=== PATIENT | male | born 1980 | race Caucasian/White ===

== ENCOUNTER 2016-12-28 18:23 | Emergency (ER) | payer OTHER ==
--- NOTE | 2016-12-28 19:04 | ED Physician Documentation ---
History of Present Illness - Stated complaint Stated Complaint: MUNOZ/HIGH BLOOD PRESSURE - Chief complaint Chief Complaint: General - History obtained from History obtained from: Patient - History of Present Illness Timing: How many weeks ago (several) Pain level max: 6 Pain level now: 5 Improved by: motrin Worsened by: nothing - Additonal information Additional information: Patient is a 36-year-old male who states that he has been under increasing stress lately at home and work. States that he is out of his lisinopril, 5 mg p.o. daily. He also states he has been having intermittent headaches. States that most of the time they are located behind the left eye. He does have occasional light sensitivity. No vomiting. No fevers. 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 Review of Systems Constitutional: denies: Fever, Chills Eyes: reports: Photophobia (mild). denies: Decreased vision Ears: denies: Ear pain Nose: denies: Rhinorrhea / runny nose, Congestion Throat: denies: Sore throat Cardiac: denies: Chest pain / pressure Respiratory: denies: Cough, Wheezing GI: denies: Abdominal Pain, Nausea, Vomiting, Diarrhea Skin: denies: Rash Musculoskeletal: denies: Neck pain, Back pain Neurologic: denies: Focal weakness, Numbness, Confused, Altered mental status, Head injury Psychiatric: denies: Depressed, Suicidal, Homicidal PD PAST MEDICAL HISTORY - Past Medical History Cardiovascular: Hypertension Respiratory: None Neuro: None Endocrine/Autoimmune: None GI: None : None HEENT: None Psych: None Musculoskeletal: None Derm: None - Past Surgical History Past Surgical History: Yes - Present Medications Home Medications: Ambulatory Orders Medication Instructions Recorded Confirmed Hydrocodone/Acetaminophen 1 - 2 each PO Q6H PRN #25 tablet 02/06/14 [Hydrocodon-Acetaminophen 5-325] Lidocaine HCl 5 ml TOP Q4H PRN #30 g 02/06/14 Lisinopril 02/06/14 02/06/14 Cyclobenzaprine [Flexeril] 10 mg PO TID PRN #20 tablet 08/20/16 HYDROcod/ACETAM 5/325 [[place] 5/325] 1 - 2 ea PO Q6H PRN #15 tablet 08/20/16 predniSONE [Deltasone] 20 mg PO [id number] #21 tab 08/20/16 Lisinopril 5 mg PO DAILY #14 tablet 12/28/16 - Allergies Allergies/Adverse Reactions: Allergies Allergy/AdvReac Type Severity Reaction Status Date / Time amoxicillin [Amoxicillin] Allergy Unknown Verified 02/06/14 14:02 - Social History Does the pt smoke?: No Smoking Status: Current every day smoker Does the pt drink ETOH?: Yes Does the pt have substance abuse?: No - Immunizations Immunizations are current?: Yes - POLST Patient has POLST: No PD ED PE NORMAL - Vitals Vital signs reviewed: Yes - General General: Alert and oriented X 3, No acute distress, Well developed/nourished - HEENT HEENT: PERRL, EOMI, Moist mucous membranes, Other (No tenderness to palpation over the temporal artery) - Neck Neck: Supple, no meningeal sign - Cardiac Cardiac: RRR, No murmur, Strong equal pulses - Respiratory Respiratory: No respiratory distress, Clear bilaterally - Abdomen Abdomen: Soft, Non tender, Non distended - Derm Derm: Warm and dry - Extremities Extremities: No edema - Neuro 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 This was done for him. He also had a headache which improved with Imitrex. He is very well-appearing, nontoxic. Afebrile. No evidence of endorgan damage. Blood pressure decreased on its own in the emergency department. No chest pain, no shortness of breath. No evidence of temporal arteritis or brain tumor. Normal neurological examination. Patient counseled regarding signs and symptoms for which I believe and urgent re-evaluation would be necessary. Patient with good understanding of and agreement to plan and is comfortable going home at this time This document was made in part using voice recognition software. While efforts are made to proofread this document, sound alike and grammatical errors may occur. Departure - Departure Disposition: 01 Home, Self Care Clinical Impression: Hypertension Qualifiers: Hypertension type: essential hypertension Qualified Code(s): I10 - Essential ( primary) hypertension Headache Qualifiers: Headache type: unspecified Headache chronicity pattern: acute headache Intractability: not intractable Qualified Code(s): R51 - Headache Condition: Good Instructions: ED HTN Established, ED Cephalgia Unspecified Follow-Up: Segundo Cantor MD [Primary Care Provider] - Within 1 week Prescriptions: Lisinopril 5 mg PO DAILY #14 tablet Comments: Return if you worsen. Follow up with your doctor for further care of your blood pressure. Discharge Date/Time: 12/28/16 19:27
[2016-12-28] MEDS ORDERED: SUMAtriptan 6 MG/0.5 ML VIAL SUBQ ONE (19:08)
[2016-12-28] MEDS: SUMAtriptan 6 MG/0.5 ML VIAL SUBQ STA (19:11)
[2016-12-28 19:27] VITALS: BP 149/94
== END 2016-12-28 19:27 | disposition home or self-care (01) ==
LOC: ED 18:23
DX: I10 Essential (primary) hypertension (principal); R51 Headache; Z76.0 Encounter for issue of repeat prescription; F17.200 Nicotine dependence, unspecified, uncomplicated
CPT/HCPCS: 96372; 99283; 99284

== ENCOUNTER 2017-06-11 08:00 | Outpatient (CLI) | payer OTHER ==
[2017-06-11 17:48] LABS: BASOPHILS # (AUTO) 0.1 10^3/uL (0.0-0.1); BASOPHILS % (AUTO) 0.8 %; EOSINOPHILS # (AUTO) 0.5 10^3/uL (0.0-0.7); EOSINOPHILS % (AUTO) 4.7 %; HCT - HEMATOCRIT 43.9 % (42.0-52.0); HGB - HEMOGLOBIN 14.7 g/dL (14.0-18.0); LYMPHOCYTES # (AUTO) 2.5 10^3/uL (1.5-3.5); LYMPHOCYTES % (AUTO) 25.2 %; MEAN CORPUSCULAR HGB CONC 33.5 g/dL (32.0-36.0); MEAN CORPUSCULAR VOLUME 92.6 fL (80.0-94.0); MEAN PLATELET VOLUME 9.6 fL (7.4-11.4); MONOCYTES # (AUTO) 0.7 10^3/uL (0.0-1.0); MONOCYTES % (AUTO) 6.7 %; NEUTROPHILS # (AUTO) 6.3 10^3/uL (1.5-6.6); NEUTROPHILS % (AUTO) 62.6 %; NUCLEATED RED BLOOD CELLS AUTO 0.1 /100WBC; RED BLOOD COUNT 4.74 10^6/uL (4.70-6.10); RED CELL DISTRIBUTION WIDTH 12.4 % (12.0-15.0)
[2017-06-12 12:17] LABS: ALBUMIN/GLOBULIN RATIO 1.4 (1.0-2.2); BILIRUBIN,TOTAL 0.3 mg/dL (0.2-1.0); BUN - BLOOD UREA NITROGEN 25 mg/dL (6-20); CARBON DIOXIDE - CO2 24 mmol/L (21-32); CHLORIDE 104 mmol/L (101-111); CREATININE 1.4 mg/dL (0.6-1.2); GFR - MDRD 57 (>89); GLUCOSE 84 mg/dL (70-100); SODIUM 137 mmol/L (135-145); TOTAL PROTEIN 6.8 g/dL (6.7-8.2)
== END 2017-06-11 08:01 ==
LOC: LAB.F 08:00
PROVIDERS: ATTEND Internal Medicine
DX: F32.1 Major depressive disorder, single episode, moderate (principal); F41.0 Panic disorder [episodic paroxysmal anxiety]
CPT/HCPCS: 36415; 80053; 84443; 85025

== ENCOUNTER 2018-02-05 13:41 | Emergency (ER) | payer OTHER ==
--- NOTE | 2018-02-05 14:35 | XRAY Report ---
Procedure Date: 02/05/2018 Accession Number: [id number] / [id number] Procedure: XR - Knee 4 View LT CPT Code: FULL RESULT: EXAM: LEFT KNEE RADIOGRAPHY EXAM DATE: 02/05/2018 02:24 PM. CLINICAL HISTORY: Trauma. COMPARISON: None. TECHNIQUE: 4 views. FINDINGS: Bones: No acute fractures or suspicious bone lesions. Joints: No effusion. No subluxations. Soft Tissues: Unremarkable. IMPRESSION: No acute radiographic abnormalities. [facility]
[2018-02-05 15:14] VITALS: BP 141/92
--- NOTE | 2018-02-05 15:40 | ED Physician Documentation ---
PD HPI LOWER EXT INJURY - Stated complaint Stated Complaint: KNEE PX - Chief complaint Chief Complaint: Ext Problem - History obtained from History obtained from: Patient - History of Present Illness PD HPI LOW EXT INJURY LOCATION: Left, Knee (He has had left knee pain and swelling for the last few days that was exacerbated at his job, he works at the [employer] and has to climb ladders and stuff a lot. There is no specific injury. He has never had this before and there is no fever.) Review of Systems Constitutional: denies: Fever, Chills GI: denies: Abdominal Pain, Nausea, Vomiting : denies: Dysuria, Frequency PD PAST MEDICAL HISTORY - Past Medical History Past Medical History: No Cardiovascular: Hypertension Respiratory: None Neuro: None Endocrine/Autoimmune: None GI: None : None HEENT: None Psych: None Musculoskeletal: None Derm: None Other Past Medical History: swollen and painful left knee. - Past Surgical History Past Surgical History: No - Present Medications Home Medications: Ambulatory Orders Medication Instructions Recorded Confirmed Lisinopril 5 mg PO DAILY #14 tablet 12/28/16 Meloxicam [Mobic] 7.5 mg PO BIDWM PRN #15 tablet 02/05/18 - Allergies Allergies/Adverse Reactions: Allergies Allergy/AdvReac Type Severity Reaction Status Date / Time amoxicillin [Amoxicillin] Allergy Unknown Verified 02/05/18 13:51 - Social History Does the pt smoke?: No Smoking Status: Current every day smoker Does the pt drink ETOH?: Yes Does the pt have substance abuse?: Yes Substance Use and Type: Marijuana - Immunizations Immunizations are current?: Yes - POLST Patient has POLST: No PD ED PE NORMAL - Vitals Vital signs reviewed: Yes - General General: Alert and oriented X 3, No acute distress - Extremities Extremities: Other (Left knee has a tiny effusion compared to the right, there is no warmth or redness, he has painless passive range of motion and ligamentous testing and grind testing is negative.) - Neuro 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, Normal speech Results - Vitals Vitals: Vital Signs - 24 hr 02/05/18 02/05/18 13:49 15:13 Temperature 36.3 C L 36.4 C L Heart Rate 104 H 106 H Respiratory 18 18 Rate Blood Pressure 131/104 H 141/92 H O2 Saturation 99 97 Oxygen O2 Source Room air - Rads (name of study) 4 views of the left knee Radiology: EMP read contemporaneously (Normal) PD MEDICAL DECISION MAKING - ED course ED course: He has a tiny effusion of the left knee, clinically there is no evidence of infection. This is probably small for inflammatory infusion from overuse and light duty for a few days and an anti-inflammatory were advised. - Sepsis Event Vital Signs: Vital Signs - 24 hr 02/05/18 02/05/18 13:49 15:13 Temperature 36.3 C L 36.4 C L Heart Rate 104 H 106 H Respiratory 18 18 Rate Blood Pressure 131/104 H 141/92 H O2 Saturation 99 97 Oxygen O2 Source Room air Departure - Departure Disposition: 01 Home, Self Care Clinical Impression: Effusion, left knee Condition: Good Record reviewed to determine appropriate education?: Yes Instructions: ED Effusion Knee Prescriptions: Meloxicam [Mobic] 7.5 mg PO BIDWM PRN #15 tablet PRN Reason: Pain Comments: RECHECK WITH YOUR DOCTOR IN 1 WEEK IF NOT BETTER Forms: Activity restrictions
== END 2018-02-05 15:55 | disposition home or self-care (01) ==
LOC: ED 13:41
DX: M25.462 Effusion, left knee (principal); I10 Essential (primary) hypertension; F17.200 Nicotine dependence, unspecified, uncomplicated
CPT/HCPCS: 99283

== ENCOUNTER 2018-04-24 07:17 | Outpatient (CLI) | payer OTHER ==
--- NOTE | 2018-04-24 09:01 | XRAY Report ---
Reason: LEFT SHOULDER PAIN- IMMOBILITY Procedure Date: 04/24/2018 Accession Number: [id number] / [id number] Procedure: XR - Shoulder 3 View LT CPT Code: FULL RESULT: EXAM: LEFT SHOULDER RADIOGRAPHY EXAM DATE: 04/24/2018 08:30 AM. CLINICAL HISTORY: Left shoulder pain. Immobility. COMPARISON: SHOULDER LT W/O 04/24/2018 7:27 AM. TECHNIQUE: 3 views. FINDINGS: Bones: Normal. No fracture or bone lesion. Joints: The glenohumeral and acromioclavicular joints are normal. Soft tissues: The visualized hemithorax is unremarkable. No soft tissue swelling. IMPRESSION: Normal shoulder radiography. [facility]
--- NOTE | 2018-04-24 13:14 | MRI Report ---
Reason: LEFT SHOULDER PAIN - IMMOBILITY Procedure Date: 04/24/2018 Accession Number: [id number] / [id number] Procedure: MRI - Shoulder LT W/O CPT Code: FULL RESULT: EXAM: LEFT SHOULDER MRI WITHOUT CONTRAST EXAM DATE: 04/24/2018 08:26 AM. CLINICAL HISTORY: Left shoulder pain - immobility. COMPARISON: None. TECHNIQUE: Multiplanar, multisequence T1-weighted and fluid-sensitive sequences of the shoulder without contrast. Other: None. FINDINGS: Acromioclavicular Region: The acromion is type II. The acromioclavicular joint is unremarkable. The coracoacromial and coracoclavicular ligaments are intact. Trace amount of bursal fluid is present. Glenohumeral Region: No subluxation. No effusion or loose bodies. The articular cartilage is unremarkable. The glenohumeral ligaments and joint capsule are unremarkable. Bone Marrow: No fracture, marrow edema or bone lesions. Labrum: No focal discrete labral tears are seen; however, there is an anterior superior paralabral cyst which is multilocular. Series 901 image 18. Series 1001 image 18. There also is some undermining of the biceps labral attachment, this may also be torn. Musculature/Rotator Cuff: There is a small amount of increased T2 signal in the infraspinatus. No partial or full-thickness fluid-filled gaps are identified. There is a small amount of edema and fatty atrophy in the teres minor portion of the rotator cuff musculature. Series 1501 image 22, series 14 and 1 image 23. Biceps Tendon: The long head of the biceps tendon and biceps som are intact. Other: The subcutaneous tissues are unremarkable. IMPRESSION: 1. Type II unipartite undersurface osseous acromion shape. Trace amount of bursal fluid is present. 2. Although no focal discrete labral tears are noted, there is a paralabral cyst seen anterosuperiorly and some undermining of the biceps labral attachment. If additional diagnostic confidence is needed MR arthrography would be helpful to help further provide evidence for labral tear. 3. Mild tendinitis/tendinopathy of the infraspinatus. No rotator cuff tear. 4. Long head of biceps appears unremarkable. [facility] MUSCULOSKELETAL RADIOLOGY SECTION
== END 2018-04-24 07:18 | disposition home or self-care (01) ==
LOC: DI 07:17
PROVIDERS: ATTEND Nurse Practitioner Family
DX: M25.512 Pain in left shoulder (principal); Z74.09 Other reduced mobility; S43.432A Superior glenoid labrum lesion of left shoulder, initial encounter

== ENCOUNTER 2018-06-13 10:48 | Emergency (ER) | payer OTHER ==
[2018-06-13 11:09] VITALS: BP 169/100
== END 2018-06-13 14:23 | disposition left against medical advice (07) ==
LOC: ED 10:48
DX: Z53.21 Procedure and treatment not carried out due to patient leaving prior to being seen by health care provider (principal)

== ENCOUNTER 2019-02-16 07:04 | Outpatient (CLI) | payer MEDICAID ==
[2019-02-16 10:28] LABS: BASOPHILS # (AUTO) 0.1 10^3/uL (0.0-0.1); BASOPHILS % (AUTO) 0.6 %; EOSINOPHILS # (AUTO) 0.5 10^3/uL (0.0-0.7); LYMPHOCYTES # (AUTO) 2.7 10^3/uL (1.5-3.5); LYMPHOCYTES % (AUTO) 24.7 %; MEAN CORPUSCULAR HEMOGLOBIN 29.9 pg (27.0-31.0); MEAN CORPUSCULAR HGB CONC 32.3 g/dL (32.0-36.0); MEAN CORPUSCULAR VOLUME 92.6 fL (80.0-94.0); MEAN PLATELET VOLUME 11.6 fL (7.4-11.4); MONOCYTES # (AUTO) 0.9 10^3/uL (0.0-1.0); NEUTROPHILS # (AUTO) 6.6 10^3/uL (1.5-6.6); NEUTROPHILS % (AUTO) 61.4 %; PLT - PLATELET COUNT 242 10^3/uL (130-450); RED BLOOD COUNT 5.02 10^6/uL (4.70-6.10); RED CELL DISTRIBUTION WIDTH 12.5 % (12.0-15.0); WHITE BLOOD COUNT 10.8 x10^3/uL (4.8-10.8)
[2019-02-16 10:34] LABS: ALBUMIN 4.1 g/dL (3.2-5.5); ALBUMIN/GLOBULIN RATIO 1.2 (1.0-2.2); BILIRUBIN,TOTAL 0.4 mg/dL (0.2-1.0); CALCIUM 9.5 mg/dL (8.5-10.3); CREATININE 1.6 mg/dL (0.6-1.2); TOTAL PROTEIN 7.4 g/dL (6.7-8.2)
== END 2019-02-16 07:05 | disposition home or self-care (01) ==
LOC: LAB.F 07:04
PROVIDERS: ATTEND Physician Assistant Medical
DX: I10 Essential (primary) hypertension (principal); N28.9 Disorder of kidney and ureter, unspecified
CPT/HCPCS: 36415; 80053; 85025

== ENCOUNTER 2019-03-24 07:07 | Outpatient (CLI) | payer MEDICAID ==
[2019-03-24 10:11] LABS: BILIRUBIN,URINE NEGATIVE (NEGATIVE); GLUCOSE, URINE (UA) NEGATIVE (NEGATIVE); KETONES,URINE (UA) NEGATIVE (NEGATIVE); LEUKOCYTE ESTERASE, URINE NEGATIVE (NEGATIVE); NITRITE,URINE NEGATIVE (NEGATIVE); OCCULT BLOOD,URINE NEGATIVE (NEGATIVE); PH,URINE 5.5 PH (5.0-7.5); PROTEIN,URINE NEGATIVE (NEGATIVE); UROBILINOGEN,URINE 0.2 (NORMAL) E.U./dL (NORMAL)
[2019-03-24 10:16] LABS: CREATININE,URINE 71.8 mg/dL; MICROALBUM/CREATININE RATIO,UR 105.8 ug/mg (<30.0); MICROALBUMIN,URINE 7.6 mg/dL (0-300.0)
[2019-03-24 10:20] LABS: BACTERIA,URINE Rare /HPF (None Seen); CLARITY,URINE CLEAR (CLEAR); RBC,URINE 0-5 /HPF (0-5); SQUAMOUS EPITHELIAL CELL,UR NONE SEEN (<= Few)
== END 2019-03-24 07:08 | disposition home or self-care (01) ==
LOC: LAB.S 07:07
PROVIDERS: ATTEND Physician Assistant Medical
DX: N28.9 Disorder of kidney and ureter, unspecified (principal)
CPT/HCPCS: 81001; 82043; 82570

== ENCOUNTER 2019-04-06 22:07 | Outpatient (CLI) | payer MEDICAID ==
--- NOTE | 2019-04-07 03:51 | Ultrasound Report ---
Reason: ADULT TYPE POLYCYSTIC KIDNEY DISEASE Procedure Date: 04/06/2019 Accession Number: [id number] / [id number] Procedure: US - Abdomen Complete CPT Code: FULL RESULT: EXAM: ABDOMEN ULTRASOUND EXAM DATE: 04/06/2019 11:37 PM CLINICAL HISTORY: Adult type polycystic kidney disease. COMPARISON: None. TECHNIQUE: Real-time scanning was performed with static images obtained. FINDINGS: Liver: The liver is normal in echotexture. Multiple hepatic small cysts are seen, measuring up to 1.4 cm in maximal diameter. Liver measures 19.6 cm in length. Main portal vein flow: Hepatopetal. Gallbladder: Normal. No stones, wall thickening, or sonographic Park's sign. Biliary System: Common bile duct measures 3.1 mm. No intrahepatic or extrahepatic ductal dilatation. Pancreas: Limited visualization. Kidneys: Right: Right kidney is enlarged measuring 18.8 cm in length. Numerous cystic lesions are noted. Dominant cyst is anterolaterally measuring 5.8 cm. Left: Left kidney is enlarged measuring 20.6 cm. Numerous cystic lesions noted. Possible 8 mm kidney stone. Spleen: 11.4 cm. Tiny splenic cyst. No suspicious lesion. Aorta and Inferior Vena Cava: Unremarkable. Other: None. IMPRESSION: 1. Severe enlarged kidneys bilaterally, with polycystic change, corresponding to the known clinical history of polycystic kidney disease. 2. Multiple hepatic cystic lesions measuring up to 14 mm. 3. No gallstones, cholecystitis, or biliary dilation. [facility]
== END 2019-04-06 22:08 | disposition home or self-care (01) ==
LOC: DI 22:07
PROVIDERS: ATTEND Internal Medicine Nephrology
DX: Q61.2 Polycystic kidney, adult type (principal); K76.9 Liver disease, unspecified
CPT/HCPCS: 76700

== ENCOUNTER 2020-09-12 07:24 | Outpatient (CLI) | payer OTHER ==
[2020-09-12 15:33] LABS: BASOPHILS # (AUTO) 0.1 10^3/uL (0.0-0.1); BASOPHILS % (AUTO) 0.7 %; EOSINOPHILS # (AUTO) 0.4 10^3/uL (0.0-0.7); EOSINOPHILS % (AUTO) 4.2 %; HGB - HEMOGLOBIN 16.7 g/dL (14.0-18.0); LYMPHOCYTES # (AUTO) 2.4 10^3/uL (1.5-3.5); LYMPHOCYTES % (AUTO) 24.8 %; MEAN CORPUSCULAR HGB CONC 33.1 g/dL (32.0-36.0); MEAN CORPUSCULAR VOLUME 90.8 fL (80.0-94.0); MEAN PLATELET VOLUME 11.6 fL (7.4-11.4); MONOCYTES # (AUTO) 0.7 10^3/uL (0.0-1.0); MONOCYTES % (AUTO) 7.1 %; NEUTROPHILS % (AUTO) 62.9 %; PLT - PLATELET COUNT 184 10^3/uL (130-450); RED BLOOD COUNT 5.56 10^6/uL (4.70-6.10); RED CELL DISTRIBUTION WIDTH 12.2 % (12.0-15.0); WHITE BLOOD COUNT 9.6 x10^3/uL (4.8-10.8)
[2020-09-12 16:03] LABS: ALBUMIN 4.2 g/dL (3.2-5.5); ALBUMIN/GLOBULIN RATIO 1.4 (1.0-2.2); ALKALINE PHOSPHATASE 57 IU/L (42-121); ALT ALANINE AMINOTRANSFERASE 19 IU/L (10-60); AST ASPARTATE AMINOTRANSFERASE 17 IU/L (10-42); BILIRUBIN,TOTAL 0.5 mg/dL (0.2-1.0); BUN - BLOOD UREA NITROGEN 37 mg/dL (6-20); CARBON DIOXIDE - CO2 25 mmol/L (21-32); CHLORIDE 103 mmol/L (101-111); CHOL/HDL RATIO 7.2 (<5.0); CHOLESTEROL 287 mg/dL; CREATININE 2.1 mg/dL (0.6-1.2); GLUCOSE 96 mg/dL (70-100); HDL CHOLESTEROL 40 mg/dL; LDL CHOLESTEROL,CALCULATED 207 mg/dL; LDL/HDL RATIO 5.2 (<3.6); SODIUM 140 mmol/L (135-145); TOTAL PROTEIN 7.1 g/dL (6.7-8.2); VLDL CHOLESTEROL 40 mg/dL
== END 2020-09-12 07:25 | disposition home or self-care (01) ==
LOC: LAB.S 07:24
PROVIDERS: ATTEND Registered Nurse
DX: Q61.3 Polycystic kidney, unspecified (principal); N28.9 Disorder of kidney and ureter, unspecified; I10 Essential (primary) hypertension; F17.200 Nicotine dependence, unspecified, uncomplicated
CPT/HCPCS: 36415; 80053; 80061; 83721; 84153; 84443; 85025

== ENCOUNTER 2020-09-26 07:00 | Outpatient (CLI) | payer OTHER ==
--- NOTE | 2020-09-26 10:50 | XRAY Report ---
PROCEDURE: Lumbar Spine 2 View INDICATIONS: STRAIN OF LOWER BACK TECHNIQUE: 3 views of the lumbar spine were acquired. COMPARISON: None. FINDINGS: Bones: 5 [id number] vertebrae are present. There is mild levoscoliosis centered at L3 level. No vertebral body compression fractures. No suspicious bony lesions. Soft tissues: Overlying bowel gas pattern is normal. No suspicious soft tissue calcifications. IMPRESSION: No compression fracture or spondylolisthesis. Very mild levoscoliosis centered at L3 lev el. Reviewed by: Jonatan Billingsley MD on 09/26/2020 9:48 AM [facility] Approved by: Jonatan Billingsley MD on 09/26/2020 9:48 AM [facility] Station ID: [id number]
== END 2020-09-26 23:59 | disposition home or self-care (01) ==
LOC: DI.S 07:00
PROVIDERS: ATTEND Nurse Practitioner
DX: S39.012A Strain of muscle, fascia and tendon of lower back, initial encounter (principal)

== ENCOUNTER 2020-10-12 09:21 | Outpatient (CLI) | payer OTHER ==
[2020-10-12 15:56] LABS: CALCIUM 9.4 mg/dL (8.5-10.3)
[2020-10-12 16:12] LABS: CREATININE,URINE 101.5 mg/dL; MICROALBUM/CREATININE RATIO,UR 36.5 ug/mg (<30.0); MICROALBUMIN,URINE 3.7 mg/dL (0-300.0)
== END 2020-10-12 09:22 | disposition home or self-care (01) ==
LOC: LAB.S 09:21
PROVIDERS: ATTEND Registered Nurse
DX: Q61.3 Polycystic kidney, unspecified (principal); N28.9 Disorder of kidney and ureter, unspecified; I10 Essential (primary) hypertension; F17.200 Nicotine dependence, unspecified, uncomplicated
CPT/HCPCS: 36415; 80048; 82043; 82570

== ENCOUNTER 2020-12-12 07:19 | Outpatient (CLI) | payer OTHER ==
[2020-12-12 14:12] LABS: HCT - HEMATOCRIT 43.6 % (42.0-52.0); HGB - HEMOGLOBIN 14.2 g/dL (14.0-18.0); MEAN CORPUSCULAR HEMOGLOBIN 30.5 pg (27.0-31.0); MEAN CORPUSCULAR HGB CONC 32.6 g/dL (32.0-36.0); MEAN CORPUSCULAR VOLUME 93.8 fL (80.0-94.0); MEAN PLATELET VOLUME 11.3 fL (7.4-11.4); RED BLOOD COUNT 4.65 10^6/uL (4.70-6.10); RED CELL DISTRIBUTION WIDTH 12.5 % (12.0-15.0); WHITE BLOOD COUNT 6.1 x10^3/uL (4.8-10.8)
[2020-12-12 14:32] LABS: ALBUMIN 4.2 g/dL (3.2-5.5); CALCIUM 9.6 mg/dL (8.5-10.3); CREATININE 2.2 mg/dL (0.6-1.2); PHOSPHORUS 3.5 mg/dL (2.5-4.6); POTASSIUM 4.1 mmol/L (3.5-5.0); URIC ACID 7.5 mg/dL (2.6-7.2)
[2020-12-12 14:34] LABS: CREATININE,URINE 118.8 mg/dL; MICROALBUM/CREATININE RATIO,UR 31.1 ug/mg (<30.0); MICROALBUMIN,URINE 3.7 mg/dL (0-300.0)
== END 2020-12-12 07:20 | disposition home or self-care (01) ==
LOC: LAB.S 07:19
PROVIDERS: ATTEND Internal Medicine Nephrology
DX: I12.9 Hypertensive chronic kidney disease with stage 1 through stage 4 chronic kidney disease, or unspecified chronic kidney disease (principal); N18.9 Chronic kidney disease, unspecified; Q61.3 Polycystic kidney, unspecified
CPT/HCPCS: 36415; 80069; 81599; 82043; 82570; 82610; 83970; 84550; 85027

== ENCOUNTER 2021-03-29 07:25 | Outpatient (CLI) | payer OTHER ==
[2021-03-29 14:54] LABS: HCT - HEMATOCRIT 44.4 % (42.0-52.0); HGB - HEMOGLOBIN 14.2 g/dL (14.0-18.0); MEAN CORPUSCULAR VOLUME 93.7 fL (80.0-94.0); MEAN PLATELET VOLUME 11.6 fL (7.4-11.4); RED BLOOD COUNT 4.74 10^6/uL (4.70-6.10); RED CELL DISTRIBUTION WIDTH 12.2 % (12.0-15.0); WHITE BLOOD COUNT 7.6 x10^3/uL (4.8-10.8)
[2021-03-29 15:13] LABS: ALBUMIN 4.1 g/dL (3.2-5.5); CALCIUM 9.3 mg/dL (8.5-10.3); CREATININE 1.9 mg/dL (0.6-1.2); PHOSPHORUS 3.9 mg/dL (2.5-4.6); POTASSIUM 4.4 mmol/L (3.5-5.0); URIC ACID 7.9 mg/dL (2.6-7.2)
[2021-03-29 15:33] LABS: CREATININE,URINE 74.5 mg/dL; MICROALBUM/CREATININE RATIO,UR 17.4 ug/mg (<30.0); MICROALBUMIN,URINE 1.3 mg/dL (0-300.0)
== END 2021-03-29 07:26 | disposition home or self-care (01) ==
LOC: LAB.S 07:25
PROVIDERS: ATTEND Internal Medicine Nephrology
DX: D75.1 Secondary polycythemia (principal); I12.9 Hypertensive chronic kidney disease with stage 1 through stage 4 chronic kidney disease, or unspecified chronic kidney disease; N18.31 Chronic kidney disease, stage 3a; Q61.3 Polycystic kidney, unspecified
CPT/HCPCS: 36415; 80069; 81599; 82043; 82570; 82610; 83970; 84550; 85027

== ENCOUNTER 2023-09-18 09:52 | Inpatient (IN) | payer OTHER ==
[2023-09-18] MEDS ORDERED: SODIUM CHLORIDE 0.9% 1,000 ML IV STA (10:39)
[2023-09-18 10:48] LABS: BASOPHILS # (AUTO) 0.1 10^3/uL (0.0-0.1); BASOPHILS % (AUTO) 0.6 %; EOSINOPHILS # (AUTO) 0.3 10^3/uL (0.0-0.7); EOSINOPHILS % (AUTO) 2.8 %; HCT - HEMATOCRIT 42.7 % (42.0-52.0); HGB - HEMOGLOBIN 14.1 g/dL (14.0-18.0); LYMPHOCYTES # (AUTO) 1.4 10^3/uL (1.5-3.5); LYMPHOCYTES % (AUTO) 15.7 %; MEAN CORPUSCULAR HEMOGLOBIN 30.1 pg (27.0-31.0); MEAN CORPUSCULAR VOLUME 91.2 fL (80.0-94.0); MEAN PLATELET VOLUME 10.4 fL (7.4-11.4); MONOCYTES # (AUTO) 0.6 10^3/uL (0.0-1.0); MONOCYTES % (AUTO) 6.4 %; NEUTROPHILS # (AUTO) 6.5 10^3/uL (1.5-6.6); NEUTROPHILS % (AUTO) 73.9 %; PLT - PLATELET COUNT 192 10^3/uL (130-450); RED BLOOD COUNT 4.68 10^6/uL (4.70-6.10); RED CELL DISTRIBUTION WIDTH 12.9 % (12.0-15.0); WHITE BLOOD COUNT 8.8 x10^3/uL (4.8-10.8)
[2023-09-18 11:25] LABS: ALBUMIN 4.2 g/dL (3.2-5.5); ALBUMIN/GLOBULIN RATIO 1.4 (1.0-2.2); BILIRUBIN,TOTAL 0.4 mg/dL (0.2-1.0); CALCIUM 8.7 mg/dL (8.5-10.3); CREATININE 3.6 mg/dL (0.6-1.3); POTASSIUM 3.9 mmol/L (3.5-4.5); TOTAL PROTEIN 7.1 g/dL (6.4-8.9); TROPONIN I HIGH SENSITIVITY 4.1 ng/L (2.3-19.7)
--- NOTE | 2023-09-18 11:28 | XRAY Report ---
PROCEDURE: Chest 1V INDICATIONS: weakness TECHNIQUE: One view of the chest was acquired. COMPARISON: None. FINDINGS: Surgical changes and devices: None. Lungs and pleura: No pleural effusions or pneumothorax. Lungs are clear. Mediastinum: Mediastinal contours appear normal. Heart size is normal. Bones and chest wall: No suspicious bony lesions. Overlying soft tissues appear unremarkable. IMPRESSION: No acute cardiopulmonary process. Reviewed by: Prince Siegel MD on 09/18/2023 11:27 AM [facility] Approved by: Prince Siegel MD on 09/18/2023 11:27 AM [facility] Station ID: [id number]
--- NOTE | 2023-09-18 12:16 | ED Physician Documentation ---
History of Present Illness - Stated complaint Stated Complaint: LETHARGIC,WEAKNESS,NAUSEA - Chief complaint Chief Complaint: Neuro - History obtained from History obtained from: Patient - Additonal information Additional information: Patient is a 43-year-old male with a history of hypertension and polycystic kidney disease presenting for evaluation of a near syncopal episode. States he has been off his medications for at least a year and has not seen a kidney specialist in a few years. He reports this morning That he stood up and started feeling lightheaded as if he was going to faint. He reports feeling foggy in the head and just generally unwell. Denies chest pain, shortness of air, headache. Review of Systems Constitutional: denies: Fever Cardiac: denies: Chest pain / pressure Respiratory: denies: Dyspnea GI: denies: Abdominal Pain Neurologic: denies: Syncope, Head injury PD PAST MEDICAL HISTORY - Past Medical History Past Medical History: Yes Cardiovascular: Hypertension Respiratory: None Neuro: None Endocrine/Autoimmune: None GI: None : None, Other HEENT: None Psych: None Musculoskeletal: None Derm: None Other Past Medical History: polycyctic kidney dx - Past Surgical History Past Surgical History: Yes - Present Medications Home Medications: Ambulatory Orders Medication Instructions Recorded Confirmed No Known Home Medications 09/18/23 09/18/23 - Allergies Allergies/Adverse Reactions: Allergies Allergy/AdvReac Type Severity Reaction Status Date / Time amoxicillin [Amoxicillin] Allergy Unknown Verified 09/18/23 10:13 - Social History Does the pt smoke?: No Smoking Status: Never smoker Does the pt drink ETOH?: Yes Does the pt have substance abuse?: Yes - Immunizations Immunizations are current?: Yes - POLST Patient has POLST: No PD ED PE NORMAL - General General: Alert and oriented X 3, No acute distress, Well developed/nourished - HEENT HEENT: Atraumatic, Moist mucous membranes, Pharynx benign - Neck Neck: Supple, no meningeal sign - Cardiac Cardiac: RRR, Strong equal pulses - Respiratory Respiratory: No respiratory distress, Clear bilaterally - Abdomen Abdomen: Soft, Non tender, Non distended - Derm Derm: Warm and dry - Neuro 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, 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, No motor deficit, No sensory deficit, Normal speech Eye Opening: Spontaneous Motor: Obeys Commands Verbal: Oriented GCS Score: 15 Results - Vitals Vitals: Vital Signs - 24 hr 09/18/23 09/18/23 09/18/23 10:09 10:13 10:43 Temperature 36.8 C 36.8 C 36.8 C Heart Rate 91 91 80 Respiratory 20 20 40 H Rate Blood Pressure 200/112 H 200/112 H 173/120 H O2 Saturation 99 99 95 09/18/23 09/18/23 09/18/23 11:13 11:30 12:00 Temperature 36.8 C Heart Rate 70 80 90 Respiratory 16 14 16 Rate Blood Pressure 166/112 H 160/100 H 162/112 H O2 Saturation 95 99 96 09/18/23 12:30 Temperature Heart Rate 68 Respiratory 17 Rate Blood Pressure 157/107 H O2 Saturation 96 Oxygen O2 Source Room air - EKG (time done) 1019 EKG releavant findings:: EKG personally interpreted by author of this note. Relevant findings are: Rate 86, normal sinus rhythm, no STEMI, QTc 453 - Labs Labs: Laboratory Tests 09/18/23 09/18/23 09/18/23 10:20 10:30 10:30 WBC 8.8 RBC 4.68 L Hgb 14.1 Hct 42.7 MCV 91.2 MCH 30.1 MCHC 33.0 RDW 12.9 Plt Count 192 MPV 10.4 Neut # (Auto) 6.5 Lymph # (Auto) 1.4 L [place] # (Auto) 0.6 Eos # (Auto) 0.3 Baso # (Auto) 0.1 Absolute Nucleated RBC 0.00 Nucleated RBC % 0.0 Sodium 138 Potassium 3.9 Chloride 103 Carbon Dioxide 23 Anion Gap 12.0 BUN 48 H Creatinine 3.6 H Estimated GFR (MDRD) 19 L Glucose 135 H POC Whole Bld Glucose 124 H Calcium 8.7 Total Bilirubin 0.4 AST 15 ALT 14 Alkaline Phosphatase 55 Troponin I High Sens 4.1 Total Protein 7.1 Albumin 4.2 Globulin 2.9 Albumin/Globulin Ratio 1.4 Lipase 45 PD Medical Decision Making - ED course Complexity details: reviewed results, re-evaluated patient, d/w patient ED course: Patient is a 43-year-old male presenting for evaluation of near syncope, feeling lightheaded. Noted to have significant slightly elevated blood pressure readings. Has been noncompliant with his medication for at least a year. No focal deficits. EKG was reviewed without signs of acute ischemia. CBC, chemistry and troponin were obtained and reviewed. Chest x-ray is negative For consolidation or effusion. Labs are significant for creatinine of 3.6. Prior labs from 2020 did demonstrate creatinine of around 2.0. His blood pressure has improved here without any intervention. I do not think he needs rapid lowering with IV medications as it has come down a considerable amount. However given his lack of PCP, symptoms today, blood pressure readings as well as his KAMILLA I do think he warrants further evaluation and treatment. I discussed with Dr. Hart. She requests a head CT which we did obtain and negative for intracranial hemorrhage. She also request that we hold off on starting any oral antihypertensives that she will choose the regiment. Patient to be admitted for further management. Departure - Departure Disposition: 66 [facility] DC/Xfer Clinical Impression: Hypertensive emergency, KAMILLA (acute kidney injury), Polycystic kidney disease Condition: Good Discharge Date/Time: 09/18/23 14:14
--- NOTE | 2023-09-18 13:24 | CT Report ---
PROCEDURE: Head WO INDICATIONS: hypertensive emergency TECHNIQUE: Noncontrast 4.5 mm thick angled axial sections acquired from the foramen magnum to the vertex. For r adiation dose reduction, the following was used: automated exposure control, adjustment of mA and/or kV according to patient size. COMPARISON: Correlation is made with 03/17/2021 FINDINGS: Image quality: Excellent. CSF spaces: Basal cisterns are patent. No extra-axial fluid collections. Ventricles are normal in size and shape. Brain: No midline shift. No intracranial masses or hemorrhage. Paredes-white matter interface is norm al. Skull and face: Calvarium and visualized facial bones are intact, without suspicious lesions. Sinuses: Moderate mucosal thickening is seen within the right maxillary sinus, with milder patchy muc osal thickening seen elsewhere within the paranasal sinuses. No significant abnormal fluid can be see n within the mastoid air cells. IMPRESSION: No acute intracranial pathology. Paranasal sinus disease is seen, which is worst within the right maxillary sinus. Reviewed by: Dontae Esquivel MD on 09/18/2023 12:22 PM [facility] Approved by: Dontae Esquivel MD on 09/18/2023 12:22 PM [facility] Station ID: [id number]
[2023-09-18] MEDS ORDERED: ACETAMINOPHEN 325 MG TABLET PO PRN (13:41)
[2023-09-18] MEDS ORDERED: ONDANSETRON 4 MG/2 ML VIAL IVP PRN (13:41)
[2023-09-18] MEDS ORDERED: SODIUM CHLORIDE FLUSH 0.9% 10 ML SYRINGE IVP PRN (13:41)
[2023-09-18] MEDS ORDERED: METOPROLOL TARTRATE 50 MG TABLET PO STA (14:12)
[2023-09-18] MEDS ORDERED: NICOTINE 14 MG PATCH TOP PRN (14:13)
--- NOTE | 2023-09-18 14:20 | HISTORY & PHYSICAL EXAMINATION ---
Chief Complaint - Chief Complaint Chief Complaint: "Foggy", severely elevated BP History of Present Illness - Admitted From Admitted From:: ED - History Obtained From History obtained from: ED provider and the patient - History of Present Illness HPI Comment/Other: This is a 43-year-old male with a remote Hx of drug abuse, stopped that in 2007, and has a history of polycystic kidney disease and hypertension. He used to be a patient with [facility] and followed by a [facility] in [place]. He has not been on meds for hypertension or had any follow-up for about 3 years, because he did not want to. Today after arrivibg at work, he felt lightheaded and "foggy" and had near syncope. He had his BP checked by medics at work and the systolic BP was 200 so a co-worker brought him tothe ER. He felt dizzy and "foggy" in the ER as well. He denied any chest pain, shortness of breath, fever, nausea vomiting or diarrhea. In the ER, his blood pressure was documented at 200/112. He had a normal neuro exam. His blood pressure came down slowly on its own without any medications, to 173/120 then 162/112. His labs show normal CBC and normal troponin. His BMP shows a creatinine of 3.6 (the last creatinine was 2.1 in 2020) and a normal sodium and potassium. In the ER he has been urinating after starting on IV fluids. And he did not describe any oliguria or anuria. Head CT was done because of the complaints of dizziness and showed no acute findings. The ED provider spoke to me about this patient who will be admitted to the Hospitalist service to manage severe hypertension and acute on chronic kidney disease with Hx of polycystic kidneys. History - Past Medical History Cardiovascular: reports: Hypertension Respiratory: reports: None Neuro: reports: None Endocrine/Autoimmune: reports: None GI: reports: None : reports: Other (Polycystic kidney disease. Previously followed by a [facility]) HEENT: reports: None Psych: reports: None Musculoskeletal: reports: None Derm: reports: None MRSA Hx?: No Other Past Medical History: polycyctic kidney dx - Family & Social History Family History: Mother: Alive and Well (Mother has polycystic kidn dis & was on dialysis in past) Family History Comment/Other: His mother and a daughter have polycystic kidney disease. Mother was on hemodialysis for 4 years in her past. Living arrangement: At home Living Situation: With family Social History Notes: There is a remote history of many different illegal drug uses, he stopped that in 2007. Now he smokes cigarettes, uses marijuana occasionally and drinks 2 beers a day. 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 He is 4 times from 4 wives. He has 4 children, each have different moms. He lives with his own mother and a 16 y/o daughter. - Substance History Use: Uses substance without health or social issues: Tobacco, Alcohol, Cannabis - POLST Patient has POLST: No Meds/Allgy - Home Medications Home Medications: Ambulatory Orders Medication Instructions Recorded Confirmed No Known Home Medications 09/18/23 09/18/23 - Allergies Allergies/Adverse Reactions: Allergies Allergy/AdvReac Type Severity Reaction Status Date / Time amoxicillin [Amoxicillin] Allergy Unknown Verified 09/18/23 10:13 Review of Systems - Cardiovascular Cariovascular: reports: Lightheadedness - Neurological Neurological: reports: Other ("fogginess", nearly fainted today) - All Other Systems All Other Systems: reports: Reviewed and negative Exam - Vital Signs Reviewed Vital Signs: Yes Vital Signs: Vital Signs x48h Temp Pulse Resp BP Pulse Ox 09/18/23 13:41 70 18 156/93 H 100 09/18/23 12:30 68 17 157/107 H 96 09/18/23 12:00 36.8 C 90 16 162/112 H 96 09/18/23 11:30 80 14 160/100 H 99 09/18/23 11:13 70 16 166/112 H 95 09/18/23 10:43 36.8 C 80 40 H 173/120 H 95 09/18/23 10:13 36.8 C 91 20 200/112 H 99 09/18/23 10:09 36.8 C 91 20 200/112 H 99 - Physical Exam General Appearance: positive: No acute distress, Alert Eyes Bilateral: positive: Normal inspection, EOMI, No lid inflammation ENT: positive: ENT inspection nml, No signs of dehydration Neck: positive: Nml inspection, No JVD Respiratory: positive: No respiratory distress, Breath sounds nml Cardiovascular: positive: Regular rate & rhythm, No murmur Abdomen: positive: Non-tender, No organomegaly, Nml bowel sounds, Other (No bruits) Skin: positive: Warm, Other (Very tattooed extensively) Extremities: positive: Non-tender, No pedal edema Neurologic/Psychiatric: positive: Oriented x3, CN's nml (2-12), Motor nml Conclusion/Plan - Problem List (1) Hypertensive emergency Conclusion/Plan: Patient presented with severe hypertension, BP 200/112, concomitant with KAMILLA. According to his report he has not taken his BP meds for over a year. Plan: Begin BP control using po Amlodipine and po beta-blockers. Titrate the doses up slowly. Will also order IV hydralazine q6h as needed for systolic BP 180 or above, or for diastolic BP 110 or above Obtain EKG to assess for LVH and obtain Echo to assess for structural heart disease. If he has IHSS by echo it would explain his episode of near syncope. Obtain renal ultrasound to evaluate for renal artery stenosis (2) Acute on chronic kidney failure Conclusion/Plan: Causes of the worsening creatinine could be multifactorial: Volume depletion, progression of his underlying polycystic disease, worsening vascular disease with a decrease of perfusion to the kidneys, medication toxicity, or other. Plan: Start empiric iv hydration at a low to moderate rate Avoid nephrotoxins Follow his BMP daily while he (3) Polycystic kidney disease Conclusion/Plan: Patient describes having known polycystic kidney disease and previously was followed by a [facility] [employer] [facility]. Unknown why he has stopped medical management and doctor visits. Plan: Any old records would be helpful. He will need to reestablish seeing a PCP and a [facility] [employer] [facility]r going forward (4) Hyperlipidemia Conclusion/Plan: I reviewed his entire EMR here and he had a lipid panel done in 2020 that showed total cholesterol 287, LDL 207, triglycerides 198, HDL 40. Plan: Will repeat his fasting lipid panel here and treat per guidelines (5) Non compliance w medication regimen Conclusion/Plan: He has not seen a doctor is years and takes no meds, despite having HTN and a serious chronic disease (Polycystic kidneys). Plan: Compliance will be stressed - Lab Results Fish Bones: 09/18/23 10:30 09/19/23 05:27 - Diagnostic Imaging Results Diagnostic Imaging Results: positive: Final report reviewed - EKG Results EKG Interpreted Independently: Yes EKG Comparison: Old EKG unavailable EKG Findings: Normal sinus rhythm, rate 64, left atrial enlargement, early R/S transition consistent with cor pulmonale, borderline LVH voltage. No old EKG available for comparison. - Other Other Results/Comments: Attestation: The patient is expected to be hospitalized for greater than 2 mi dnights and is expected to be discharged or transferred to another facility within 96 hours: Yes.
[2023-09-18] MEDS: DEXTROSE 5%-0.45% NACL 1,000 ML IV SCH (14:30)
--- NOTE | 2023-09-18 14:49 | PHARMACY PROGRESS NOTE ---
- Best Possible Medication History Admit Date and Time: 09/18/23 1341 Processed by: Pharmacy Medication History completed: Yes Patient Interview: Completed Secondary Source(s): Physician records, Pharmacy records, Insurance records As the person ultimately responsible for medication therapy, providers are able to order a medication from an existing home medication list in [facility] via the "Reconcile Routine" prior to Confirmation of that medication by phlebotomy support tech. Such practice is discouraged except when the physician, in their clinical judgment, deems that a medical need exists for a medication without regard to previous use.
[2023-09-18] MEDS ORDERED: hydrALAZINE INJ 20 MG/ML VIAL IVP PRN (17:20)
[2023-09-18] MEDS: SODIUM CHLORIDE FLUSH 0.9% 10 ML SYRINGE IVP SCH (18:32)
[2023-09-18] MEDS: METOPROLOL TARTRATE 25 MG TABLET PO SCH (20:42)
[2023-09-19] MEDS: SODIUM CHLORIDE FLUSH 0.9% 10 ML SYRINGE IVP SCH ×4 (00:10→23:56)
[2023-09-19 06:19] LABS: CALCIUM 8.8 mg/dL (8.5-10.3); CREATININE 3.3 mg/dL (0.6-1.3); MAGNESIUM 1.8 mg/dL (1.7-2.3); PHOSPHORUS 3.4 mg/dL (2.5-5.0); POTASSIUM 4.2 mmol/L (3.5-4.5)
[2023-09-19 06:37] LABS: CHOL/HDL RATIO 5.9 (<5.0); CHOLESTEROL 270 mg/dL; HDL CHOLESTEROL 46 mg/dL; LDL CHOLESTEROL,CALCULATED 182 mg/dL; TRIGLYCERIDES 211 mg/dL (48-352); VLDL CHOLESTEROL 42 mg/dL
[2023-09-19] MEDS: DEXTROSE 5%-0.45% NACL 1,000 ML IV SCH (06:52)
[2023-09-19] MEDS: METOPROLOL TARTRATE 25 MG TABLET PO SCH (08:27)
[2023-09-19] MEDS ORDERED: amLODIPine 5 MG TABLET PO SCH (09:00)
--- NOTE | 2023-09-19 09:42 | Ultrasound Report ---
PROCEDURE: Arterial Visceral Complete INDICATIONS: Severe HTN, Eval for renal artery stenosis TECHNIQUE: Real time scanning was performed of both kidneys, followed by Color and pulsed Doppler in terrogation of the renal vessels. COMPARISON: None FINDINGS: Aortic peak systolic velocity: 81 cm/s. Right side: Paredes-scale imaging: Polycystic kidneys. Proximal renal artery peak systolic velocity: Not visualized cm/s. Mid renal artery peak systolic velocity: Not visualized cm/s. Distal renal artery peak systolic velocity: Not visualized cm/s. Renal vein: Not visualized Peak renal/aortic ratio (RAR): Not visualized. Left side: Paredes-scale imaging: Polycystic kidneys. Proximal renal artery peak systolic velocity: Not visualized cm/s. Mid-renal artery peak systolic velocity: Not visualized cm/s. Distal renal artery peak systolic velocity: Not visualized cm/s. Renal vein: Not visualized Peak renal/aortic ratio (RAR): Not visualized. IMPRESSION: Renal vessels not visualized. Consider abdominal CTA to evaluate for atherosclerotic disease. Polycystic kidneys. Reviewed by: Josh Castro MD on 09/19/2023 9:41 AM PST Approved by: Josh Castro MD on 09/19/2023 9:41 AM PST Station ID: [id number]
--- NOTE | 2023-09-19 11:15 | PROVIDER PROGRESS NOTE ---
Assessment/Plan - Problem List (1) Hypertensive emergency Assessment/Plan: Patient presented with severe hypertension, BP 200/112, concomitant with KAMILLA, thus I made him an Inpt. According to his report he has not taken his BP meds for probably 3 years and had not seen a doctor in 3 years. I started him on Metoprolol and Amlodipine and ordered prn iv Hydralazine. Today BP is 150's-170's systolic. Echo to assess for structural heart disease was essentially normal. Renal ultrasound to evaluate for renal artery stenosis could n ot visualize the renal artery due to multiple renal cysts. I updated pt who said he has had MRI of kidneys in past. He is no longer "foggy", and all his orthostatic VS did not reveal orthostasis. Plan: Cont low salt diet and I educated pt on this I will titrate up the Amlodipine dose and also uptitrate and change Metoprolol Toartrate to Succinate No CTA or MRI planned here, due to persistently very elevated creat. He will need that W/U repeated with a Tube Puller Will stop orthostatic checks (2) Acute on chronic kidney failure Conclusion/Plan: Causes of the worsening creatinine could be multifactorial: Volume depletion, progression of his underlying polycystic disease, worsening vascular disease with a decrease of perfusion to the kidneys, medication toxicity, or other. I started him on iv fluids and today creat has improved to 3.3 (all labs were reviewed) Plan: Cont iv hydration at a low to moderate rate Avoid nephrotoxins Follow his BMP daily (3) Polycystic kidney disease Conclusion/Plan: Patient describes having known polycystic kidney disease and previously was followed by a T[facility]. Unknown why he has stopped medical management and doctor visits. There is a (+) FH: Mother and a daughter have it too. Plan: He will need to reestablish seeing a PCP and a Tube Puller going forward (4) Hyperlipidemia Conclusion/Plan: In 2020total cholesterol 287, LDL 207, triglycerides 198, HDL 40. Today fasting lipid panel showed an LDL of 187 Plan: Start Atorvastatin 40 mg qpm A low fat diet will be ordered (5) Non compliance w medication regimen Conclusion/Plan: He has not seen a doctor is years and takes no meds, despite having HTN and a serious chronic disease (Polycystic kidneys). Plan: Compliance was stressed - Current Meds Current Meds: Current Medications Generic Name Dose Route Start Last Admin Trade Name Freq PRN Reason Stop Dose Admin Dextrose/Sodium Chloride 1,000 mls @ 60 mls/hr 09/18/23 14:00 09/19/23 06:52 D5.45ns IV 09/19/23 23:19 60 mls/hr .[id number] PINA Administration Sodium Chloride 10 ml 09/18/23 17:00 09/19/23 08:28 Sodium Chloride Flush 0.9% 10 Ml Syringe IVP Not Given 0100,0900,1700 PINA - Lab Result Fish Bone Diagrams: 09/18/23 10:30 09/19/23 05:27 - Additional Planning My Orders: My Active Orders 09/18/23 13:41 Telemetry- [RC] Q4HR Vital Signs [RC] Q4HR Acetaminophen [Tylenol] 650 mg PO Q4HR PRN Ondansetron Inj [Zofran Inj] 4 mg IVP Q6HR PRN Sodium Chloride Flush 0.9% [Normal Saline Flush 0.9%] 10 ml IVP PRN PRN 09/18/23 13:45 Activity Orders [RC] Q2HR IO [RC] IOSHIFT Incentive Spirometry - RT [RC] TID Initiate Bowel Care Protocol [RC] .protocol Initiate Line Care Protocol [RC] QSHIFT Initiate Personal Care Protoco [RC] .protocol Oxygen Therapy [RC] .PRN Code Status [OTHERS] Routine Condition of Patient [OTHERS] Routine DVT Prophylaxis [OTHERS] Routine 09/18/23 13:47 Daily Weight [RC] 0600 IV Insert [RC] .ONCE SCDs [RC] QSHIFT 09/18/23 14:00 Dextrose 5%-0.45% NaCl [D5.45ns] 1,000 ml IV 60 mls/hr 09/18/23 14:13 Nicotine 14 mg Patch [Nicoderm] 1 patch TOP DAILY PRN 09/18/23 17:00 Sodium Chloride Flush 0.9% [Normal Saline Flush 0.9%] 10 ml IVP 0100,0900,1700 09/18/23 17:20 hydrALAZINE INJ [Apresoline Inj] 10 mg IVP Q6H PRN 09/19/23 Breakfast Low Sodium Diet [DIET] 09/19/23 10:15 VITAMIN D 25-HYDROXY [REFLAB] Routine 09/19/23 21:00 Atorvastatin [Lipitor] 40 mg PO QPM Metoprolol Succinate [Toprol Xl] 25 mg PO BID 09/20/23 05:00 BMP - BASIC METABOLIC PANEL [CHEM] DAILYLAB 09/20/23 09:00 amLODIPine [Norvasc] 10 mg PO DAILY 09/21/23 05:00 BMP - BASIC METABOLIC PANEL [CHEM] DAILYLAB Subjective - Subjective Patient Reports: Feeling Better (No further "fogginess" since last night.) Nursing Reports: Other (BP gets very hypertensive w/ standing and walking) Objective Vital Signs: Vital Signs - 24 hr 09/18/23 09/18/23 09/18/23 11:30 12:00 12:30 Temperature 36.8 C Heart Rate 80 90 68 Heart Rate [ Brachial] Heart Rate [ Monitoring electrodes] Respiratory 14 16 17 Rate Blood Pressure 160/100 H 162/112 H 157/107 H Blood Pressure [Right Brachial artery] O2 Saturation 99 96 96 09/18/23 09/18/23 09/18/23 13:41 14:22 14:25 Temperature 36.8 C Heart Rate 70 Heart Rate [ Brachial] Heart Rate [ 78 Monitoring electrodes] Respiratory 18 19 Rate Blood Pressure 156/93 H 174/114 H Blood Pressure 176/114 H [Right Brachial artery] O2 Saturation 100 98 09/18/23 09/18/23 09/18/23 16:30 16:43 17:39 Temperature 36.7 C Heart Rate Heart Rate [ 61 59 L Brachial] Heart Rate [ 55 L Monitoring electrodes] Respiratory 20 Rate Blood Pressure Blood Pressure 168/110 H 183/124 H 156/104 H [Right Brachial artery] O2 Saturation 98 09/18/23 09/18/23 09/19/23 20:42 20:51 01:00 Temperature 36.8 C 37.0 C Heart Rate Heart Rate [ 63 58 L Brachial] Heart Rate [ Monitoring electrodes] Respiratory 18 16 Rate Blood Pressure 143/100 H Blood Pressure 143/100 H 159/107 H [Right Brachial artery] O2 Saturation 97 95 09/19/23 09/19/23 09/19/23 05:00 08:02 08:27 Temperature 36.8 C 36.8 C Heart Rate Heart Rate [ 68 60 Brachial] Heart Rate [ Monitoring electrodes] Respiratory 16 20 Rate Blood Pressure 147/106 H Blood Pressure 123/105 H 147/106 H [Right Brachial artery] O2 Saturation 97 98 Oxygen O2 Source Room air I&O (Last 24 Hrs): Intake and Output Totals x24h 09/17/23 09/18/23 09/19/23 23:59 23:59 23:59 Intake Total 1846 476 Balance 1846 476 General: Alert, Oriented x3, No acute distress HEENT: EOMI, Mucous membr. moist/pink Neck: Supple, No JVD Neuro: Alert, Non Focal Cardiovascular: Regular rate, No murmurs Respiratory: No respiratory distress, Breath sounds nml Abdomen: Soft, No tenderness Extremities: No clubbing, No edema Skin: No significant lesion (MAny tattoos) - Results Results: Laboratory Results WBC 8.8 x10^3/uL (4.8-10.8) 09/18/23 10:30 RBC 4.68 10^6/uL (4.70-6.10) L 09/18/23 10:30 Hgb 14.1 g/dL (14.0-18.0) 09/18/23 10:30 Hct 42.7 % (42.0-52.0) 09/18/23 10:30 MCV 91.2 fL (80.0-94.0) 09/18/23 10:30 MCH 30.1 pg (27.0-31.0) 09/18/23 10:30 MCHC 33.0 g/dL (32.0-36.0) 09/18/23 10:30 RDW 12.9 % (12.0-15.0) 09/18/23 10:30 Plt Count 192 10^3/uL (130-450) 09/18/23 10:30 MPV 10.4 fL (7.4-11.4) 09/18/23 10:30 Neut # (Auto) 6.5 10^3/uL (1.5-6.6) 09/18/23 10:30 Lymph # (Auto) 1.4 10^3/uL (1.5-3.5) L 09/18/23 10:30 [place] # (Auto) 0.6 10^3/uL (0.0-1.0) 09/18/23 10:30 Eos # (Auto) 0.3 10^3/uL (0.0-0.7) 09/18/23 10:30 Baso # (Auto) 0.1 10^3/uL (0.0-0.1) 09/18/23 10:30 Absolute Nucleated RBC 0.00 x10^3/uL 09/18/23 10:30 Nucleated RBC % 0.0 /100WBC 09/18/23 10:30 Sodium 138 mmol/L (135-145) 09/19/23 05:27 Potassium 4.2 mmol/L (3.5-4.5) 09/19/23 05:27 Chloride 109 mmol/L (101-111) 09/19/23 05:27 Carbon Dioxide 22 mmol/L (21-32) 09/19/23 05:27 Anion Gap 7.0 (6-13) 09/19/23 05:27 BUN 42 mg/dL (6-20) H 09/19/23 05:27 Creatinine 3.3 mg/dL (0.6-1.3) H 09/19/23 05:27 Estimated GFR (MDRD) 20 (>89) L 09/19/23 05:27 Glucose 109 mg/dL (74-104) H 09/19/23 05:27 POC Whole Bld Glucose 124 mg/dL (70 - 100) H 09/18/23 10:20 Calcium 8.8 mg/dL (8.5-10.3) 09/19/23 05:27 Phosphorus 3.4 mg/dL (2.5-5.0) 09/19/23 05:27 Magnesium 1.8 mg/dL (1.7-2.3) 09/19/23 05:27 Total Bilirubin 0.4 mg/dL (0.2-1.0) 09/18/23 10:30 AST 15 IU/L (10-42) 09/18/23 10:30 ALT 14 IU/L (10-60) 09/18/23 10:30 Alkaline Phosphatase 55 IU/L (42-121) 09/18/23 10:30 Troponin I High Sens 4.1 ng/L (2.3-19.7) 09/18/23 10:30 Total Protein 7.1 g/dL (6.4-8.9) 09/18/23 10:30 Albumin 4.2 g/dL (3.2-5.5) 09/18/23 10:30 Globulin 2.9 g/dL (2.1-4.2) 09/18/23 10:30 Albumin/Globulin Ratio 1.4 (1.0-2.2) 09/18/23 10:30 Triglycerides 211 mg/dL (48-352) 09/19/23 05:27 Cholesterol 270 mg/dL (-200) H 09/19/23 05:27 LDL Cholesterol, Calc 182 mg/dL (-129) H 09/19/23 05:27 VLDL Cholesterol 42 mg/dL 09/19/23 05:27 HDL Cholesterol 46 mg/dL (60-) L 09/19/23 05:27 LDL/HDL Ratio 4.0 (<3.6) 09/19/23 05: Cholesterol/HDL Ratio 5.9 (<5.0) 09/19/23 05:27 Lipase 45 U/L (11-82) 09/18/23 10:30
[2023-09-19] MEDS ORDERED: METOPROLOL SUCCINATE 25 MG TABLET PO SCH (21:00)
[2023-09-19] MEDS ORDERED: ATORVASTATIN 40 MG TABLET PO SCH (21:00)
[2023-09-20 05:56] LABS: CALCIUM 9.1 mg/dL (8.5-10.3); CREATININE 3.4 mg/dL (0.6-1.3); POTASSIUM 4.1 mmol/L (3.5-4.5)
--- NOTE | 2023-09-20 07:21 | Discharge Plan ---
Discharge Plan Problem Reviewed?: Yes Disposition: Home, Self Care Condition: Fair Prescriptions: Atorvastatin [Lipitor] 40 mg PO QPM #30 tab amLODIPine [Norvasc] 10 mg PO DAILY #30 tab Metoprolol Succinate [Toprol Xl] 37.5 mg PO BID #90 tab Diet: Low Sodium Activity Restrictions: Activity as Tolerated Shower Restrictions: No Driving Restrictions: No Instruction Topics: Kidney Failure Self Care, Kidney Disease Eat Less Sodium, Kidney Disease Chronic Dc Health Concerns: You were hospitalized to evaluate and manage your lightheadedness which appears to have been caused by severely elevated blood pressure. You have been noncompliant for 3 years with taking your blood pressure medicines. You are put on blood pressure medicines while you were here. Due to your polycystic kidney disease and uncontrolled hypertension, your kidney function has worsened. You needed IV fluids which improved the kidney function only slightly. Your cardiac Echocardiogram showed you have a structurally stable heart, but a dilated ascending aorta, which is also likely from having years of uncontrolled hypertension. This needs follow-up with Echos done yearly as an outpatient, since intervention would be indicated if it reaches 5 cm. You are being discharged home today with new prescriptions for blood pressure control and cholesterol control. The new prescriptions were electronically sent to your [facility] pharmacy in [place]. We also found that you have a low vitamin D level, so please start taking an (over the counter brand) vitamin D supplement daily. Please remember to eat a low-salt and low cholesterol diet. You must establish with a Primary Care Provider and you need to start seeing a Gas Systems Worker again. The imaging we did to look at your kidney blood vessels was incomplete, this needs to be redone, probably by your new Gas Systems Worker. Plan of Treatment: As above. Care Goals: Improvement in symptoms and stabilization are the goals. Assessment: The patient understands and is agreeable with the plan. Additional Instructions or Follow Up instructions: If you have new or worsening symptoms, call your Primary Care Provider or your Gas Systems Worker for advice, or come to a Walk-In Clinic or the ER. No Smoking: If you smoke, Please STOP! Call for help.
--- NOTE | 2023-09-20 07:25 | DISCHARGE SUMMARY ---
Discharge Summary Admit Date: 09/18/23 Discharge Date: 09/20/23 Discharging Provider: Dr Digna Hart Primary Care Provider: None Code Status: Attempt Resuscitation Condition at Discharge: Fair Discharge Disposition: 01 Home, Self Care - HPI History of Present Illness: This is a 43-year-old male with a remote Hx of drug abuse, stopped that in 2007, and has a history of polycystic kidney disease and hypertension. He used to be a patient with [facility] and followed by a Minister in [place]. He has not been on meds for hypertension or had any follow-up for about 3 years, because he did not want to. Today after arrivibg at work, he felt lightheaded and "foggy" and had near syncope. He had his BP checked by medics at work and the systolic BP was 200 so a co-worker brought him tothe ER. He felt dizzy and "foggy" in the ER as well. He denied any chest pain, shortness of breath, fever, nausea vomiting or diarrhea. In the ER, his blood pressure was documented at 200/112. He had a normal neuro exam. His blood pressure came down slowly on its own without any medications, to 173/120 then 162/112. His labs show normal CBC and normal tropo sina. His BMP shows a creatinine of 3.6 (the last creatinine was 2.1 in 2020) and a normal sodium and potassium. In the ER he has been urinating after starting on IV fluids. And he did not describe any oliguria or anuria. Head CT was done because of the complaints of dizziness and showed no acute findings. The ED provider spoke to me about this patient who will be admitted to the Hospitalist service to manage severe hypertension and acute on chronic kidney disease with Hx of polycystic kidneys. - HOSPITAL COURSE Hospital Course: (1) Hypertensive emergency Patient was admitted due to severe hypertension, BP 200/112, concomitant with KAMILLA. He admitted he has not taken his BP meds for probably 3 years and has not seen a doctor in 3 years. He was started on Metoprolol and Amlodipine and the doses were up-titrated and he was discharged on these new meds. With improved BP control, his "fogginess" resolved. He had an Echo to assess for structural heart disease, which was essentially normal except for the ascending aorta (see #5). He had a Renal ultrasound to evaluate for renal artery stenosis, but this test could not visualize the renal arteries due to multiple renal cysts. He will need work-up for HUY done as an outpatient, probably with Nephrology. (2) Acute on chronic kidney failure Causes of his worsening creatinine could be multifactorial: Volume depletion, progression of his underlying polycystic disease, worsening vascular disease with a decrease of perfusion to the kidneys, or medication side effect, for example. He was put on iv fluids. His creat went from 3.6>> 3.3>> 3.4 on day of discharge. He needs outpatient Nephrology management. (3) Polycystic kidney disease Patient describes having known polycystic kidney disease and previously was followed by a Minister. Unknown why he has stopped medical management and doctor visits. There is a (+) FH: Mother and a daughter have it too. He will need to reestablish seeing a PCP and a Minister going forward. (4) Hyperlipidemia In 2020 labs showed: total cholesterol 287, LDL 207, triglycerides 198, HDL 40. His mother thinks he used to be on a statin, but not recently. While here his fasting lipid panel showed an LDL of 187. he was started on Atorvastatin 40 mg qpm and discharged on this. (5) Thoracic aortic aneurysm - I71.20 His Echo showed a dilated ascending aorta measuring 4.1 cm. He will need close follow-up as an outpatient, with yearly Echos to follow this, since surgery would be indicated if it reaches 5 cm, when risk of aortic rupture is great. (6) Non compliance w medication regimen He had not seen a doctor is many years and takes no meds, despite having HTN and a serious chronic disease (Polycystic kidney disease). Compliance was stressed. - ALLERGIES Allergies/Adverse Reactions: Allergies Allergy/AdvReac Type Severity Reaction Status Date / Time amoxicillin [Amoxicillin] Allergy Unknown Verified 09/18/23 10:13 - MEDICATIONS Home Medications: Ambulatory Orders Medication Instructions Recorded Confirmed Atorvastatin [Lipitor] 40 mg PO QPM #30 tab 09/20/23 Metoprolol Succinate [Toprol Xl] 37.5 mg PO BID #90 tab 09/20/23 amLODIPine [Norvasc] 10 mg PO DAILY #30 tab 09/20/23 - PHYSICAL EXAM AT DISCHARGE General Appearance: positive: No acute distress, Alert Eyes Bilateral: positive: Normal inspection, EOMI ENT: positive: ENT inspection nml, No signs of dehydration Neck: positive: Nml inspection, No JVD Respiratory: positive: No respiratory distress, Breath sounds nml Cardiovascular: positive: Regular rate & rhythm, No murmur Abdomen: positive: Non-tender, Nml bowel sounds, Other (No bruit) Skin: positive: Warm, Dry, Other (Many tattoos) Extremities: positive: Non-tender, No pedal edema Neurologic/Psychiatric: positive: Oriented x3, CN's nml (2-12), Motor nml - LABS Result Diagrams: 09/18/23 10:30 09/20/23 05:04 - DIAGNOSTIC IMAGING Diagnostic Imaging Results: Final report reviewed - FOLLOW UP Follow Up: Patient and mother at bedside were instructed that he needs to establish LARISSA with a PCP, and needs to be referred to have Nephrology evaluation and manag ement LARISSA. - TIME SPENT Time Spent in Discharge (Minutes): 40
[2023-09-20 07:52] VITALS: O2SAT 97
[2023-09-20] MEDS ORDERED: amLODIPine 5 MG TABLET PO SCH (09:00)
[2023-09-20] MEDS ORDERED: METOPROLOL SUCCINATE 25 MG TABLET PO SCH (09:00)
[2023-09-20] MEDS: SODIUM CHLORIDE FLUSH 0.9% 10 ML SYRINGE IVP SCH (09:01)
[2023-09-20 11:09] VITALS: BP 166/103
== END 2023-09-20 10:31 | disposition home or self-care (01) | DRG 305 ==
LOC: ED 09:52 → MS3 13:41
PROVIDERS: ADMIT Internal Medicine; ATTEND Internal Medicine
DX: I16.1 Hypertensive emergency (principal); N17.9 Acute kidney failure, unspecified; Q61.3 Polycystic kidney, unspecified; I12.9 Hypertensive chronic kidney disease with stage 1 through stage 4 chronic kidney disease, or unspecified chronic kidney disease; N18.9 Chronic kidney disease, unspecified; F17.210 Nicotine dependence, cigarettes, uncomplicated; E78.5 Hyperlipidemia, unspecified; I71.21 Aneurysm of the ascending aorta, without rupture; T50.916A Underdosing of multiple unspecified drugs, medicaments and biological substances, initial encounter; Z91.128 Patient's intentional underdosing of medication regimen for other reason
CPT/HCPCS: 36415; 70450; 71045; 80048; 80053; 80061; 82306; 83690; 83735; 84100; 84484; 85025; 93005; 93307; 93975; 99285; A9270; 83721